=== PATIENT | female | born 1970 | race Caucasian/White ===

== ENCOUNTER 2016-12-26 19:12 | Emergency (ER) | payer BC ==
[~2016-12-26] VITALS: Ht 152.4 cm; Wt 46.8 kg
[2016-12-26 19:33] LABS: ADD MIUA? YES; BILIRUBIN NEGATIVE; BLOOD NEGATIVE; COLOR YELLOW ((YELLOW)); GLUCOSE (STRIP) NEGATIVE; KETONES 20; LEUKOCYTES TRACE; NITRITE NEGATIVE; PROTEIN (STRIP) NEGATIVE; SPECIFIC GRAVITY 1.028 (1.000-1.030); UROBILINOGEN 0.2 MG/DL (0.2-1.0)
[2016-12-26 19:36] LABS: BACTERIA NONE SEEN /HPF; EPITHELIAL CELLS RARE /HPF; MUCUS TRACE /LPF; RED BLOOD CELLS 0-5 /HPF (0-5); UCUL ADDED? NO; WHITE BLOOD CELLS 0-5 /HPF (0-5)
[2016-12-26 19:47] LABS: HEMATOCRIT 45.5 % (36.0-46.0); MCH 31.8 PG (29.0-34.0); MCHC 34.1 G/DL (30.0-36.0); MCV 93.2 FL (83-99); MEAN PLAT.VOLUME 11.1 uM^3 (9.5-12.4); PLATELET COUNT 236 K/uL (156-360); RBC DIS.WIDTH-CV 12.4 % (11.8-14.6); RBC DIS.WIDTH-SD 42.7 % (39-53); RED BLOOD COUNT 4.88 M/uL (3.80-5.20); WHITE BLOOD COUNT 10.7 K/uL (4.1-10.2)
[2016-12-26 19:56] LABS: CHLORIDE 105 mEq/L (99-109); POTASSIUM 4.1 mEq/L (3.7-5.4); SODIUM 140 mEq/L (136-147)
[2016-12-26 19:58] LABS: GLUCOSE 95 mg/dL (70-99)
[2016-12-26 19:59] LABS: ANION GAP 12 MEQ/L (2-14)
[2016-12-26 20:01] LABS: GFR ESTIMATE (CALCULATED) > 59 mL/min/
[2016-12-26 20:02] LABS: UREA NITROGEN (BUN) 11 mg/dL (9-23)
[2016-12-26] MEDS ORDERED: CITRATE OF MAG296 ML PO (21:47)
[2016-12-26 21:55] VITALS: BP 135/66
== END 2016-12-26 21:57 | disposition home or self-care (01) ==
LOC: EME 19:12
DX: R10.9 Unspecified abdominal pain (principal); K59.00 Constipation, unspecified; N83.201 Unspecified ovarian cyst, right side; Z90.711 Acquired absence of uterus with remaining cervical stump; Z88.6 Allergy status to analgesic agent
CPT/HCPCS: 74176; 80048; 81003; 85027; 99281; 99284

== ENCOUNTER 2017-09-21 05:43 | Day surgery (SDC) | payer BC ==
[~2017-09-21] VITALS: Ht 152.4 cm; Wt 47.6 kg
[~2017-09-21 05:43] MED LIST: AMBIEN5 MG PO; CITRATE OF MAG296 ML PO; CLARITIN,ALAVAR10 MG PO; DEXILANT60 MG PO; MULTIPLE VITAM1 EAC4 PO
[2017-09-21 07:04] VITALS: BP 109/57
[2017-09-21] MEDS ORDERED: ROXICODONE5 MG PO (09:30)
[2017-09-21 10:20] VITALS: BP 112/53
[2017-09-21 11:04] VITALS: BP 113/53
[2017-09-21 12:21] VITALS: BP 94/50
== END 2017-09-21 12:35 | disposition home or self-care (01) ==
LOC: SDC 05:43
DX: N87.9 Dysplasia of cervix uteri, unspecified (principal); N83.8 Other noninflammatory disorders of ovary, fallopian tube and broad ligament; N83.201 Unspecified ovarian cyst, right side; K21.9 Gastro-esophageal reflux disease without esophagitis; Z88.6 Allergy status to analgesic agent
CPT/HCPCS: 88305; J0131; J0690; J1100; J1170; J1885; J2250; J2405; J2710; J3010; J7643; Q0175